=== PATIENT | female | born 1980 | race Caucasian/White ===

== ENCOUNTER → 2016-03-22 | Outpatient (CLI) | payer OTHER ==
[~2016-03-22] MED LIST: CONTRAVE1 TER PO; PROMETHAZINE D240 ML PO; VENTOLIN H0.09 MG/AC IH; [UNRECOGNIZED DRUG - OTHER] PO
[2016-03-22 10:05] LABS: HEMOGLOBIN 13.5 g/dL (12.2-16.2); LYMPH # 1.9 K/mm3 (0.7-4.5)
[2016-03-22 11:31] LABS: BUN 12 mg/dL (7-18)
[2016-03-22 11:32] LABS: GFR (ESTIMATED) 95 ML/MIN (59-)
[2016-03-24 07:35] LABS: Vitamin D, 25-Hydroxy 42.9 ng/mL (30.0-100.0)
== END ==
LOC: LAB 09:47
PROVIDERS: Physician Assistant
DX: R53.83 Other fatigue (principal); R63.5 Abnormal weight gain; Z13.220 Encounter for screening for lipoid disorders

== ENCOUNTER 2016-04-01 21:22 | Emergency (ER) | payer OTHER ==
[~2016-04-01] VITALS: Ht 167.6 cm; Wt 72.1 kg
[2016-04-01] MEDS ORDERED: CONTRAVE1 TER PO (21:37)
[2016-04-01] MEDS ORDERED: PROMETHAZINE D240 ML PO (21:41)
[2016-04-01] MEDS ORDERED: VENTOLIN H0.09 MG/AC IH (21:42)
[2016-04-01] MEDS ORDERED: [UNRECOGNIZED DRUG - OTHER] PO (21:44)
--- NOTE | 2016-04-01 21:58 | Emergency Room Report ---
History of Present Illness Time Seen by [id number] Presenting Problem in Triage Pt arrived:Walked Presenting Problem:SHAKY AND FEELING LIKE GOING TO PASS OUT WITH WARM WAVES AND RASH Onset of symptoms date/time:04/01/16 or onset unknown for: Treatment Prior to Arrival: VEGETABLE PICKER Provided by: Sepsis Risk Assessment: Temp: 98.7 B/P: 144/79 MAP: 100 Pulse: 84 Resp: 18 Recent fever? N Clinical Suspician of Infection? N Mental Status: 1 - Regular (Normal Baseline) Sepsis Risk:Low Sepsis Risk Have you (or family members/close friends) recently traveled outside the [place]? N If Yes, where/when: Have you had exposure to infectious disease within the past month? N TB? Other? Specify: Source patient, RN notes reviewed, family, old records Exam Limitations no limitations Comment feeling of anxious with wave of nausea and warmth with faint feeling started tonight Cardiac Chest Pain Chest pain indicative of cardiac No Timing/Duration this evening Severity moderate ALLERGIES Coded Allergies: No Known Allergies (04/01/16) Home Medications Reported Medications NALTREXONE HCL/BUPROPION HCL (Contrave ER 8-90 MG Tablet) 1 TER PO BID PROMETHAZINE/DEXTROMETHORPHAN (Promethazine-Dm Syrup) 240 ML PO Q6HP PRN COUGHING ALBUTEROL (Ventolin Hfa) 1 PUFF IH Q6HP PRN BRONCHITIS - BREATHING PHENYLEPHRINE/DM/ACETAMINOP/GG (Multi-Symptom Cold Caplet) 2 TAB PO Q6HP PRN BRONCHITIS History Medical History General CAD? No Angina: No [place]: No Hypertension? No Hyperlipidemia? No CHF? No DVT? No PE? No COPD? No Asthma? No Anemia? No GERD? No Gastric ulcers? No GI Bleed? No Hernia? No Thyroid Problems? No Hypothyroidism? No CVA? No Seizures? No Diabetes? No Renal Insuffiency? No End Stage Renal Disease? No UTI? No Stones? No GB Disease: No Nephritic Syndrome? No Asplenia? No Hepatitis? No Sickle Cell Disease? No Arthritis? No Migraines? No Cataracts? No Glaucoma? No MRSA? No HIV? No TB? No Anxiety? No Depression? No Cancer? No More? 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 Respiratory denies cough, denies shortness of breath, denies wheezing Cardiovascular denies chest pain, denies palpitations, denies syncope Gastrointestinal see HPI, denies abdominal pain, denies diarrhea, nausea, denies vomiting Genitourinary denies: dysuria, frequency, hesitancy, hematuria. Musculoskeletal denies joint pain, denies joint swelling Skin see HPI, rash Psychiatric/Neurological denies headache, denies seizure Comment has bronchitis Physical Exam Vital Signs Vital Signs Date Time Temp Pulse Resp B/P Pulse O2 O2 Flow FiO2 Ox Delivery Rate 04/01 2126 98.7 84 18 144/79 99 - WBC >12,000 or <4,000 or 10% bands? 2 or more SIRS Criteria Met? B/P:144/79 MAP:100 Creatinine >2.0? UA output<0.5ml/kg/hr for 2 hrs? Platelet count >100,000? Lactate >2.0mmol/1? INR >1.2 or PTT > than 60 sec? Evidence of Organ Dysfunction? Provider documented clinical suspician of infection? N Sepsis Criteria Count: 0 Sepsis Risk: Low Sepsis Risk General Appearance no apparent distress Eye Exam - bilateral eye PERRL, bilateral eye EOMI Ear, Nose, Throat normal ENT inspection, sl swollen uluva Neck supple Respiratory Status No: respiratory distress. Lung Sounds bilateral: lungs clear. 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 No Results/Orders Laboratory Tests 04/01/16 2205: Sodium 140, Potassium 3.3 L, Chloride 102, Carbon Dioxide 31, BUN 17, Creatinine 0.7, Estimated Creat Clear 128, Estimated GFR (MDRD) 95, Glucose 90, Calcium 8.3 L, Total Bilirubin 0.3, AST 15, ALT 27, Alkaline Phosphatase 60, Creatine Kinase 58, CK-MB (CK-2) Rel Index 1.6, CK and CKMB Interp 0.9, Troponin I 0.02, Total Protein 7.2, Albumin 3.6, Globulin 3.6 H, Albumin/Globulin Ratio 1.0 L, WBC 6.9, RBC 4.45, Hgb 13.7, Hct 40.4, MCV 90.9, RDW 13.3, Plt Count 176 , MPV 9.3, Gran % 74.3, Gran # 5.1, Lymphocytes % 16.1, Monocytes % 5.9, Eosinophils % 3.2, Basophils % 0.5, Lymphocytes # 1.1, Monocytes # 0.4, Eosinophils # 0.2, Basophils # 0.0, PUBS MCHC 34.0, MCH 30.9 04/01/162124: Urine Color YELLOW, Urine Appearance CLEAR, Urine pH 6.0, Ur Specific [place] 1.025, Urine Protein NEGATIVE, Urine Ketones TRACE H, Urine Blood TRACE-LYSED, Urine Nitrate NEGATIVE, Urine Bilirubin NEGATIVE, Urine Urobilinogen 0.2, Ur Leukocyte Esterase NEGATIVE, Urine WBC 3-5, Ur Squamous Epith Cells 3-5, Urine Bacteria OCC, Urine Glucose NEGATIVE Current Medication Orders Sig/Eliz Start time Last Medication Dose Route Stop Time Status Admin Sodium Chloride 1,000 ML .STK-MED ONE 04/01 2205 DC IV Sodium Chloride 10 ML PRN PRN 04/01 2199 AC 04/01 IV 04/02 Sodium Chloride 1,000 ML .Q1H1M 04/01 2199 DC 04/01 IV 04/01 Sodium Chloride 10 ML PRN PRN 04/01 2199 AC IV 04/02 2157 Orders Procedure Date/time Status URINE 04/01 2158 Complete IV SALINE LOCK 04/01 2157 Active URINALYSIS/COMPLETE 04/01 2157 Complete COMPLETE METABOLIC PANEL 04/01 2157 Complete CBC WITH AUTO DIFF 04/01 2157 Complete CARDIAC ENZYMES 04/01 2157 Complete Departure Departure Time of Disposition 3 Disposition DC Home or Self Care(routine) Clinical Impression Primary Impression: Vertigo Condition STABLE Referrals Demond Mata MD (Family) Patient Instructions DI for Dizziness-Nonvertigo Additional Instructions fluids and hold meds at this time and see pcp for follow up Discharge Counseling Counseled pt/family regarding diagnosis, test results, follow up needs ED Critical Care Critical Care No Comments maybe combination of illness and meds at 0176
[2016-04-01 22:18] LABS: URINE BILIRUBIN - DIPSTICK NEGATIVE (NEG); URINE BLOOD TRACE-LYSED (NEG)
[2016-04-01 22:23] LABS: HEMOGLOBIN 13.7 g/dL (12.2-16.2); LYMPH # 1.1 K/mm3 (0.7-4.5); LYMPH % 16.1 % (10-50.0)
[2016-04-01 23:28] VITALS: BP 122/71
== END 2016-04-01 23:31 | disposition home or self-care (01) ==
LOC: ER 21:22
PROVIDERS: Emergency Medicine
DX: R42 Dizziness and giddiness (principal); F41.9 Anxiety disorder, unspecified

== ENCOUNTER 2017-01-05 08:56 | Emergency (ER) | payer OTHER ==
[~2017-01-05] VITALS: Ht 167.6 cm; Wt 70.3 kg
--- OUTSIDE RECORDS SUMMARY | 2017-01-05 09:00 | External Medical Summary Rpt ---
Author Author [employer]uca, GÓMEZ [employer] Organization [employer] Address Unknown Phone Unavailable
--- OUTSIDE RECORDS SUMMARY | 2017-01-05 09:00 | External Medical Summary Rpt | CCD ---
Author Author , GÓMEZ MAGAÑA Address Unknown Phone Purpose Continuity of Care Document - through 2016
--- OUTSIDE RECORDS SUMMARY | 2017-01-05 09:00 | External Medical Summary Rpt | CCD ---
Author Author , GÓMEZ MAGAÑA Address Unknown Phone [email or web address] Purpose Continuity of Care Document - through 2016
--- OUTSIDE RECORDS SUMMARY | 2017-01-05 09:00 | External Medical Summary Rpt | CCD ---
Author Author [employer] Organization [employer] Address Unknown Phone Unavailable Purpose Continuity of Care Document - through 2016
--- OUTSIDE RECORDS SUMMARY | 2017-01-05 09:00 | External Medical Summary Rpt | CCD ---
Demographics Preferred Language Belarusian Marital Status Unknown Religion Affiliation Unknown Race Unknown Ethnic Group Unknown Author Author , GÓMEZ MAGAÑA Address Unknown Phone Immunization No patient found.
--- OUTSIDE RECORDS SUMMARY | 2017-01-05 09:00 | External Medical Summary Rpt | CCD ---
Demographics Preferred Language Vietnamese Marital Status Unknown Zoroastrianism Affiliation Unknown Race Unknown Ethnic Group Unknown Author Author , GÓMEZ MAGAÑA Address Unknown Phone Immunization No patient found.
--- NOTE | 2017-01-05 09:26 | Urgent Treatment Center Report ---
History of Present Issue Date/Time Seen by Provider 01/05/17 0909 Visit Reason Pt arrived:Walked Presenting Problem:PT C/O PAIN AND PRESSURE ON THE RIGHT SIDE OF HER BACK UNDER LAST RIB. Location if Accident: Onset of symptoms date/time:/ or onset unknown for:MEDICAL HX UNKNOWN Have you (or family members/close friends) recently traveled outside the [place]? N If Yes, where/when: Have you had exposure to infectious disease within the past month? TB? Other? Specify: c/o pain right "last rib" since Thursday, 6 days ago. Hx of right hip muscle strain approx 2 months ago. Started seeing chiropractor and has helped. During that time, multiple rib dislocations w/o known injury fixed by chiropractor manipulation. Saw chiropractor day after this pain started. Adjustment and being off work x "several days" seemed to help "a little". 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 Pain worse. Most improvement w/ standing, worse when sitting "but really any position too long is painful". Worse w/ deep breaths. Ibuprofen 800mg helps "a little but then gets worse again". Pain described as constant dull ache w/ intermittent sharp stabbing sensation. Currently 8/10. ibuprofen last at 1030pm. Nonsmoker. No OCP use. Source patient Exam Limitations no limitations ALLERGIES Coded Allergies: No Known Allergies (04/01/16) History Medical History General CAD? No Angina: No [place]: No Hypertension? No Hyperlipidemia? No CHF? No DVT? No PE? No COPD? No Asthma? No Anemia? No GERD? No Gastric ulcers? No GI Bleed? No Hernia? No Thyroid Problems? No Hypothyroidism? No CVA? No Seizures? No Diabetes? No Renal Insuffiency? No UTI? No Stones? No BPH? No GB Disease: No Nephritic Syndrome? No Asplenia? No Hepatitis? No Sickle Cell Disease? No Arthritis? No Migraines? No Cataracts? No Glaucoma? No MRSA? No HIV? No TB? No Anxiety? No Depression? No Cancer? No More? 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 Musculoskeletal see HPI Skin denies change in color, denies lesions, denies lumps, denies rash Psychiatric/Neurological denies headache, denies numbness, denies tingling Physical Exam Vital Signs Vital Signs Date Time Temp Pulse Resp B/P Pulse O2 O2 Flow FiO2 Ox Delivery Rate 01/05 1015 98.4 74 18 151/96 100 01/05 0948 18 01/05 0905 98.4 74 18 151/96 100 General Appearance no apparent distress, seated in exam room chair, slow to get on table Neck non-tender, supple, full range of motion Respiratory Status Yes: trachea midline, chest symmetrical, non tender chest (no subq air present), pain on inspiration ("if really deep"). No: respiratory distress, use of accessory muscles, pain on expiration, productive cough, non productive cough. Lung Sounds anterior: lungs clear. posterior: lungs clear. bilateral: lungs clear. Cardiovascular regular rate/rhythm, no peripheral edema, no murmur Peripheral Pulses Pulses normal Yes (radial) Gastrointestinal normal bowel sounds, non tender, soft, no guarding, no rebound Back normal inspection, no CVA tenderness, no vertebral tenderness, gait normal, strt leg raising(L)-NML, strt leg raising(R)-NML, localized ttp 11th rib posterior and flank only, no other tendnerness Extremities normal range of motion (BUEs), normal inspection (normal perfusion) Strength 5 Upper Ext (L), 5 Upper Ext (R), 5 Lower Ext (L), 5 Lower Ext (R) Neurologic alert, no motor/sensory deficits, oriented x 3 Reflexes Reflexes normal Yes (patellar) Mental status normal mood/affect Skin intact, normal color, warm/dry Medical Decision Making LABS/Meds/Orders Pt receiving controlled substance in ED? No Results/Orders Laboratory Tests 01/05/17 0916: Urine Color YELLOW, Urine Appearance CLEAR, Urine pH 7.0, Ur Specific [place] 1.020, Urine Protein NEGATIVE, Urine Ketones 40, Urine Blood NEGATIVE, Urine Nitrate NEGATIVE, Urine Bilirubin NEGATIVE, Urine Urobilinogen 0.2, Ur Leukocyte Esterase NEGATIVE, Urine Glucose NEGATIVE Current Medication Orders Sig/Eliz Start time Last Medication Dose Route Stop Time Status Admin Ketorolac 0 .STK-MED ONE 01/05 947 DC Tromethamine .ROUTE Ketorolac 60 MG ONCE ONE 01/05 930 DC 01/05 Tromethamine IM 01/05 931 0948 Orders Procedure Date/time Status [id number] [id number] 01/05 917 Active [facility] URINE DIPSTICK 01/06 916 Complete XRAY/CT/US XRAY/CT/US XRAY rib (right) XR interpretation by reviewed by me (w/ Dr. Carrillo, CARLOS MEANS) Xray Results no fracture seen, no acute findings Comment suggest NSAIDs and muscle relaxer w/ FU chiropractor/PCP Progress [facility] Progress Notes Date 01/05/17 Time 1015 Comment Pain improved. Now 2/8. "more like a slight ache now" Departure Departure Time of Disposition 1016 Disposition DC Home or Self Care(routine) Clinical Impression Primary Impression: Muscle spasm Condition STABLE Referrals Esperanza MEANS,Demond (Family) for new, worsening or persistant symptoms. you might also consider your chiropractor if they have been able to provide relief and it seems to be improving Patient Instructions DI for Muscle Spasm Additional Instructions * Naproxen every 12 hours with meal as needed for pain/inflammation. * Remember you had a toradol shot, similiar anti-inflammatory in clinic so no naproxen for 6-8 hours * No additional anti-inflammatories like motrin, aleve, advil with the above amount of naproxen. You CAN still take Tylenol every 4 hours as needed if you need something more for pain. * Ice x15-20 mins 3-4 times a day for first 48 hours after the initial injury followed by moist heat x15-20 mins 3-4 times a day to affected area. Honestly try each and whichever feels best. * Muscle relaxer every 8 hours as needed for muscle spasms but remember, it WILL cause drowsiness. You can NOT take it and drive, operate machinary or care for small children * Keep this area active. No movement leads to more stiffness. However, take it easy too and avoid heavy lifting, pushing, pulling. Discharge Counseling Counseled pt/family regarding diagnosis, test results, medications/RX, home care, follow up needs Prescriptions Current Visit Scripts NAPROXEN (NAPROSYN 500MG TAB) 500 MG PO BID #14 TAB take with food Cyclobenzaprine Hcl (Flexeril) 0.5-1 TAB PO Q8HP PRN muscle spasms #8 TAB will cause drowsiness at 1025
[2017-01-05 09:28] LABS: URINE BILIRUBIN - DIPSTICK NEGATIVE (NEG)
[2017-01-05 09:29] LABS: URINE BLOOD NEGATIVE (NEG)
[2017-01-05 10:15] VITALS: BP 151/96
[2017-01-05] MEDS ORDERED: NAPROSYN 500MG500 MG PO (10:19)
[2017-01-05] MEDS ORDERED: FLEXERIL10 MG PO (10:19)
--- NOTE | 2017-01-05 13:58 | RADIOLOGY REPORT PS360 ---
[id number] VIEWS HISTORY: hx rib dislocation, now pain right lower back/flank, rib12 Patient Age: 36 years: Female Ordering Physician: CHLOE KLEIN APRN TECHNIQUE: Oblique views right ribs along with AP above and below diaphragm rib images COMPARISON :No previous for comparison FINDINGS --------- Right ribs appear intact with no fracture evident no lesion. The lungs are well expanded and clear with no active disease.. No active disease in the chest. The heart lb and mediastinal structures satisfactory. Minor dextrocurvature mid T-spine noted. Tiny calcified granulomas bilaterally noted. Not of concern Attention is directed towards the 12th rib. It appears to be intact and satisfactory on these views as does the 11th rib. Slight lucency projected over the ninth rib on one of the oblique views appears merely due to overlapping CP angle of right lung.. It does not convincingly persist on other views. However if there should be persistent pain here, consider follow-up IMPRESSION: Right ribs intact. No fracture. No displacement Minor comments in text Lungs clear with no active disease. Minimal dextrocurvature mid T-spine
== END 2017-01-05 10:23 | disposition home or self-care (01) ==
LOC: UTC 08:56
PROVIDERS: Nurse Practitioner Family
DX: M62.838 Other muscle spasm (principal); R10.31 Right lower quadrant pain